=== PATIENT | male | born 1985 | race Caucasian/White ===

== ENCOUNTER 2024-02-10 02:54 | Emergency (ER) | payer MEDICAID ==
[~2024-02-10] VITALS: Ht 188 cm; Wt 75.0 kg
[2024-02-10] MEDS ORDERED: NALO4SPR BOTHNARES (03:45)
[2024-02-10] MEDS ORDERED: ONDA-245 PO (04:45)
[2024-02-10 05:15] VITALS: BP 107/60; PULSE 87; RESP 13; O2SAT 90
[2024-02-10 05:16] VITALS: TEMP 98.1
== END 2024-02-10 05:24 | disposition home or self-care (01) ==
LOC: ER 02:55
DX: T40.2X1A Poisoning by other opioids, accidental (unintentional), initial encounter (principal); Z79.899 Other long term (current) drug therapy; Y92.89 Other specified places as the place of occurrence of the external cause
CPT/HCPCS: 99283